=== PATIENT | female | born 2005 | race Two or more races ===

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

== ENCOUNTER 2023-02-26 11:24 | Emergency (ER) | payer BC, OTHER ==
[~2023-02-26] VITALS: Ht 160 cm; Wt 52.3 kg
[~2023-02-26 11:24] MED LIST changes: +ACET500T58 PO; +IBUP-1454 PO
[2023-02-26 12:03] VITALS: BP 120/87; PULSE 75; RESP 18; TEMP 98.4; O2SAT 99
[2023-02-26 12:37] LABS: Urine Bacteria FEW /hpf (None Seen); Urine Blood Negative /uL (Negative); Urine Clarity HAZY (Clear); Urine Color Yellow (Yellow); Urine Mucus FEW (None Seen); Urine Protein, UAD 1+ (Negative); Urine Specific Gravity 1.032 (1.001-1.035); Urine Urobilinogen Normal (Negative); Urine WBC 109 /hpf (0 - 5); Urine pH 5.5 (5.0-8.0)
[2023-02-26] MEDS ORDERED: KETOROLAC TROMETH 60MG/2ML VIAL IM ONE (13:00)
[2023-02-26] MEDS ORDERED: cefTRIAXone SOD 1,000 MG VL IM ONE (13:00)
[2023-02-26 13:40] LABS: Basophils # (auto) 0 10 ^3/uL (0-0.2); Basophils % (auto) 0.6 % (0.0-2.0); Eosinophils # (auto) 0.1 10 ^3/uL (0-0.8); Eosinophils % (auto) 1.9 % (0.0-7.0); Hematocrit 41.3 % (36.0-46.0); Lymphocytes # (auto) 1.9 10 ^3/uL (0.4-5.4); Lymphocytes % (auto) 39.3 % (10.0-50.0); Mean Corpuscular Hemoglobin 30.4 pg (28.0-32.0); Mean Corpuscular Hgb Conc. 33.9 g/dL (32.0-36.0); Mean Corpuscular Volume 89.6 fL (80.0-100.0); Monocytes # (auto) 0.4 10 ^3/uL (0-1.3); Monocytes % (auto) 7.6 % (0.0-12.0); Neutrophils # (auto) 2.5 10 ^3/uL (1.6-8.6); Neutrophils % (auto) 50.6 % (37.0-80.0); Nucleated Red Blood Cells % 0.1 %; Red Cell Distribution Width 13.4 % (11.8-14.3); White Blood Cell 4.9 10^3/uL (4.4-10.8)
[2023-02-26 13:53] LABS: Chloride 110 mmol/L (98-107); Potassium 4.5 mmol/L (3.5-5.1); Sodium 142 mmol/L (136-145)
[2023-02-26 13:54] LABS: Anion Gap 6 (5-15); Calcium 9.8 mg/dL (8.7-10.4); Carbon Dioxide 26 mmol/L (20-30)
[2023-02-26 13:56] LABS: INR 1.08 (0.9-1.15); Prothrombin Time 11.3 sec (9.3-11.8)
[2023-02-26 13:59] LABS: Blood Urea Nitrogen 9 mg/dL (9-23); Glucose 88 mg/dL (74-106)
[2023-02-26] MEDS ORDERED: CIPR-173 PO (14:14)
[2023-02-26] MEDS ORDERED: IBUP-1454 PO (14:14)
== END 2023-02-26 14:20 | disposition home or self-care (01) ==
LOC: ER 11:24
DX: N39.0 Urinary tract infection, site not specified (principal); Z86.2 Personal history of diseases of the blood and blood-forming organs and certain disorders involving the immune mechanism; Z79.1 Long term (current) use of non-steroidal anti-inflammatories (NSAID); Z79.899 Other long term (current) drug therapy
CPT/HCPCS: 36415; 80048; 81001; 81025; 85025; 85610; 96372; 99284; J0696; J1885

== ENCOUNTER 2023-04-08 11:05 | Emergency (ER) | payer OTHER ==
[~2023-04-08] VITALS: Ht 162.6 cm; Wt 52.4 kg
[~2023-04-08 11:05] MED LIST changes: +CIPR-173 PO
[2023-04-08 11:19] VITALS: BP 126/90; PULSE 98; TEMP 98.9
[2023-04-08 11:22] VITALS: RESP 16; O2SAT 99
[2023-04-08] MEDS ORDERED: cefTRIAXone SOD 1,000 MG VL IM ONE (12:30)
[2023-04-08] MEDS ORDERED: AMOX500T86 PO (12:43)
== END 2023-04-08 13:04 | disposition home or self-care (01) ==
LOC: ER 11:05
DX: J03.90 Acute tonsillitis, unspecified (principal); H61.21 Impacted cerumen, right ear
CPT/HCPCS: 69209; 96372; 99283; J0696